=== PATIENT | female | born 1975 | race Two or more races ===

== ENCOUNTER 2024-12-07 19:32 | Emergency (ER) | payer OTHER ==
[~2024-12-07] VITALS: Ht 170.2 cm; Wt 127.0 kg
[2024-12-07] MEDS ORDERED: SYNTHROID100 MCG PO (19:44)
[2024-12-07] MEDS ORDERED: ZESTRIL5 MG PO (19:45)
[2024-12-08] MEDS ORDERED: ORPHENADRINE CITRATE 30 MG/ML AMPUL ONE (00:52)
[2024-12-08] MEDS ORDERED: ORPHENADRINE CITRATE 30 MG/ML AMPUL IM ONE (01:00)
== END 2024-12-08 00:56 | disposition home or self-care (01) ==
LOC: ER 19:34
DX: M62.838 Other muscle spasm (principal); M54.9 Dorsalgia, unspecified; R10.9 Unspecified abdominal pain; Z88.0 Allergy status to penicillin